=== PATIENT | female | born 1975 | race Caucasian/White ===

== ENCOUNTER → 2018-09-25 | Day surgery (SDC) | payer OTHER ==
[2018-09-10 11:17] LABS: BASOPHILS # (AUTO) 0.1 (0.0-0.1); BASOPHILS % 0.6 % (0.0-1.0); EOSINOPHILS # (AUTO) 0.4 (0.0-0.4); HEMATOCRIT 34.3 % (34.2-44.1); HEMOGLOBIN 11.1 g/dL (12.0-16.0); LYMPHOCYTES # (AUTO) 2.3 (1.0-3.2); LYMPHOCYTES % 13.1 % (18.0-39.1); MEAN CORPUSCULAR HEMOGLOBIN 26.6 pg (28-32); MEAN CORPUSCULAR HGB CONC 32.4 g/dL (31-35); MEAN CORPUSCULAR VOLUME 82.3 fL (81-99); MONOCYTES % 5.4 % (4.4-11.3); NEUTROPHILS # (AUTO) 13.8 (2.1-6.9); NEUTROPHILS % 77.8 % (38.7-80.0); PLATELET COUNT 388 x10e3/uL (140-360); RED BLOOD COUNT 4.17 x10e6/uL (3.6-5.1); RED CELL DISTRIBUTION WIDTH 13.4 % (11.7-14.4)
--- NOTE | 2018-09-10 12:40 | Diagnostic Imaging Report ---
EXAMINATION: CHEST 2 VIEWS INDICATION: Pre-op COMPARISON: None FINDINGS: TUBES and LINES: None. LUNGS: Lungs are well inflated. Lungs are clear. There is no evidence of pneumonia or pulmonary edema. PLEURA: No pleural effusion or pneumothorax. HEART AND MEDIASTINUM: The cardiomediastinal silhouette is unremarkable. BONES AND SOFT TISSUES: No acute osseous lesion. Soft tissues are unremarkable. UPPER ABDOMEN: No free air under the diaphragm. IMPRESSION: No acute thoracic abnormality. Signed by: Jayna Mustafa MD on 09/10/2018 12:37 PM
[2018-09-24 11:26] LABS: BASOPHILS # (AUTO) 0.1 (0.0-0.1); BASOPHILS % 0.9 % (0.0-1.0); EOSINOPHILS # (AUTO) 0.4 (0.0-0.4); EOSINOPHILS % 3.6 % (0.0-6.0); HEMATOCRIT 39.2 % (34.2-44.1); LYMPHOCYTES # (AUTO) 2.4 (1.0-3.2); LYMPHOCYTES % 22.6 % (18.0-39.1); MEAN CORPUSCULAR HGB CONC 33.2 g/dL (31-35); MEAN CORPUSCULAR VOLUME 81.3 fL (81-99); MONOCYTES # (AUTO) 0.8 (0.2-0.8); MONOCYTES % 7.7 % (4.4-11.3); NEUTROPHILS # (AUTO) 6.9 (2.1-6.9); NEUTROPHILS % 64.6 % (38.7-80.0); PLATELET COUNT 379 x10e3/uL (140-360); RED BLOOD COUNT 4.82 x10e6/uL (3.6-5.1); RED CELL DISTRIBUTION WIDTH 13.8 % (11.7-14.4)
[~2018-09-25] MED LIST: ACETAMINOPHEN325 M1 PO; BUPIVACAINE HCL 0.5% INJ 30 ML VIAL INJ ONE; CLINDAMYCIN PHOS 900MG/ 50ML 50 ML IV ONE; DEXAMETHASONE SOD PHOS INJ 4 MG/ML VIAL ONE; FENTANYL CITRATE/PF 100MCG/2 ML INJ ONE; ISOFLURANE INHAL SOLN 250 ML BTL INH ONE; LIDOCAINE HCL 2% LOCAL INJ 5 ML SDV VIAL INJ ONE; MELOXICAM7.5 MG PO; MIDAZOLAM HCL 2 MG/2 ML VIAL ONE; OMEPRAZOLE40 MG PO; ONDANSETRON HCL INJ 2MG/ML 2ML 2 MG/ML VIAL ONE; PROAIR HFA INH8.5 GM INH; PROPOFOL IV EMULSION 10 MG/ML 20 ML VIAL ONE
--- OUTSIDE RECORDS SUMMARY | 2018-09-25 05:15 | XMS REPORT ---
Author Author [facility] Address Unknown Phone Unavailable Care Team Providers Care Bilingual Secretary Name Role Phone Sourav BLEDSOE Unavailable Unavailable Payers Payer Name Policy Type Policy Number Effective Date Expiration Date Problems This patient has no known problems. Allergies, Adverse Reactions, Alerts Allergy Name Allergy Type Status Severity Reaction(s) Onset Date Inactive Date Treating Clinician Comments amoxicillin DA Active SV 2018-08-26 00:00:00 codeine DA Active TN 2009-01-04 00:00:00 Medications This patient has no known medications. Results Test Description Test Time Test Comments Text Results Atomic Results Result Comments CHEST 2 VIEWS 2018-09-10 12:36:00 [place] [address] Patient Name: TIGIST MCKEON MR #: [id number] : 1975 Age/Sex: 43/F Req #: [id number] Adm Physician: Ordered by: Sourav BLEDSOE DPM Report #: [id number] Location: OR Room/Bed: Procedure: [id number] DX/CHEST 2 VIEWS Exam Date: 09/10/18 Exam Time: 1119 REPORT STATUS: Signed EXAMINATION: CHEST 2 VIEWS INDICATION: Pre-op COMPARISON: None FINDINGS: TUBES and LINES: None. LUNGS: Lungs are well inflated. Lungs are clear. There is no evidence of pneumonia or pulmonary edema. PLEURA: No pleural effusion or pneumothorax. HEART AND MEDIASTINUM: The cardiomediastinal silhouette is unremarkable. BONES AND SOFT TISSUES: No acute osseous lesion. Soft tissues are unremarkable. UPPER ABDOMEN: No free air under the diaphragm. IMPRESSION: No acute thoracic abnormality. Signed by: Yola Yates MD on 09/10/2018 12:37 PM Dictated By: YOLA YATES MD 123 Transcribed By: WILLA on 09/10/18 1237 COPY TO: Sourav BLEDSOE [facility] SURGICAL SPECIMENS 2018-09-03 09:11:00 RUN DATE: 09/03/18 [facility] *LIVE* PAGE 1 RUN TIME: 911 Specimen Inquiry RUN USER: INTERFACE PATIENT: MOHAN MCKEONLY ALE LOC: [facility]I U #: [id number] AGE/SX: 43/F ROOM: [facility] RE08/29/18REG DR: Tessa Saucedo MD : [birth year] BED: 8 DIS: 08/29/18 STATUS: DIS Ondina TLOC: SPEC #: [id number] RECD: 08/30/18 STATUS: SADA COHEN #: [id number] HOLLY: 08/30/[address]: Files,Tessa Newberry MD ENTERED: 09/03/18 SP TYPE: SURG SPEC OTHR DR: No Primary or Family PhysicianORDERED: GM LEVEL 4 CODES: [id number] - SOFT TISSUES, N [id number] - UTERUS, NOS COPIES TO: No Primary or Family Physician Tessa Saucedo MD [address] [place] [address] [address] [place], [place] [id number] PROCEDURES: GM LEVEL 4 (Incomplete) TISSUES: 1. SOFT TISSUES, NOS - Soft tissue, peritoneal, bx. 2. UTERUS, NOS - Uterus, cervix, bilateral tubes, excisio 3. SOFT TISSUES, NOS - Soft tissue, right ovary, bx. FINAL DIAGNOSIS Soft tissue, peritoneal, bx.: Fibrosis, mixed inflammation and dystrophic calcifications. Uterus, cervix, bilateral tubes, excision: Chronic cervicitis, squamous metaplasia, nabothian cysts. secretory endometrium, adenomyosis, fibrous serosal adhesions. bilateral fallopian tubes with no atypical cellular features. Soft tissue, right ovary, bx.: Hemorrhagic corpus luteum cyst. GROSS AND MICROSCOPIC GROSS EXAMINATION: Received in formalin labeled peritoneal biopsy 1.1 cm pink-henriquez nodule (A). Received in formalin labeled uterus, cervix, bilateral fallopian tubes is a 160 g 10 x 6.7 x 4 cm uterus with a 3.2 cm in diameter cervix with purple henriquez smooth ectocervix and 0.8 cm cervical os. The serosal surface is purple henriquez and smooth. The left fallopian tube measures 3.5 cm in length 0.8 cm in diameter, the right fallopian tube measures 4.4 cm in length 0.8 cm in diameter. The endometrium is henriquez and lush measuring up to 0.5 cm. The myometrium measures up to 2.1 cm is pink-henriquez and trabeculated. Submitted CONTINUED ON NEXT PAGE RUN DATE: 09/03/18 [facility] *LIVE* PAGE 2 RUN TIME: 911 Specimen Inquiry RUN USER: INTERFACE SPEC #: [id number] PATIENT: TIGIST MCKEON #[id number] (Continued) GROSS AND MICROSCOPIC (Continued) (B)-(C) cervix (D)-(G) corpus uteri (H) left fallopian tube (I) right fallopian tube. Received in formalin labeled right ovarian cyst is a 2.1 x 1.1 x 0.6 cm portion of white-henriquez tissue with attached hemorrhage (J). MICROSCOPIC EXAMINATION: Sections of the peritoneal biopsy reveal portions fibroadipose with some fibrosis, mixed inflammation and calcification. The ectocervical mucosa has normal maturation. The endocervical mucosa has nabothian cysts, areas of squamous metaplasia and associated chronic inflammation. The endometrial glands are dilated with eosinophilic secretions. Benign endometrial glands and stroma are present in the myometrium. The serosa shows fibrous adhesions. Both fallopian tubes are unremarkable. Sections of the right ovary reveal a hemorrhagic corpus luteum cyst. POST-OP DIAGNOSIS Heavy menstrual bleeding, dysmenorrhea, dyspareunia PRE-OP DIAGNOSIS Heavy menstrual bleeding, dysmenorrhea, dyspareunia Signed SIGNATURE ON FILE Brando Schmidt Sanchez DO 09/03/1811 END OF REPORT BASIC METABOLIC PANEL 2018-08-29 07:23:00 SODIUM (test code=NA) 140 mEq/L 134-147 POTASSIUM (test code=K) 3.5 mEq/L 3.4-5.0 CHLORIDE (test code=CL) 108 mEq/L 100-108 CARBON DIOXIDE (test code=CO2) 28 mEq/L 21-33 ANION GAP (test code=GAP) 8 0-20 GLUCOSE (test code=GLU) 122 mg/dL 70-110 BLOOD UREA NITROGEN (test code=BUN) 12 mg/dL 7-18 GLOMERULAR FILTRATION RATE (test code=GFR) 68.7 95-105 Units of measure=ml/min/1.73 m2 CREATININE (test code=CREAT) 0.9 mg/dL 0.6-1.3 CALCIUM (test code=CA) 8.5 mg/dL 8.0-10.5 - XR CHEST 1 [id number] 07:22:00 FAX: Tessa Núñez MD [phone] [place]: St: REG FAX: Brien Turner JR, MD [phone] Name: TIGIST MCKEON [facility] Mariusz Quan : 1975 Age/S: 43/F [address] [place] [address] Unit #: [id number] Loc: [place] [address] Phys: Brien Rodriguez JR, MD Acct: [id number] Dis Date: Status: REG [facility] PHONE #: [phone] Exam Date: 08/29/2018714 FAX #: [phone] Reason: PREOP PROTOCOL EXAMS: CPT CODE: [id number] XR CHEST 1 V [id number] EXAM: CHEST SINGLE VIEW HISTORY: 43-year-old female with menorrhagia, preoperative evaluation COMPARISON: Chest radiograph 07/10/2008 FINDINGS: The lungs are clear. The cardiomediastinal silhouette is normal for projection. No acute osseous abnormality. IMPRESSION: 1. No acute cardiopulmonary abnormality. SL: [id number] at 0722 Reported and signed by: Stormy Dudley M.D. CC: Tessa Saucedo MD; Brien Rodriguez JR, MD Technologist: RT Aracelis(R) Trnscrd Date/Time/By: 08/29/2018 (07) : By: [email or web address] Orig Print D/T: S: 08/29/2018 (0713) PAGE 1 Signed Report PROTHROMBIN [id number] 11:47:00 * Test Item Value Reference Range Comments PROTHROMBIN TIME PATIENT (test code=PTP) 10.9 SECONDS 9.3-12.9 INTERNATIONAL NORMAL RATIO (test code=INR) 1.0 0.8-1.2 TARGET INR BY INDICATION Indication INR1. Prophylaxis of venous thrombosis 2.0 - 3.0 (orthopedic surgery), Prophylaxis of venous thrombosis (other than high-risk surgery), Treatment of Deep Vein Thrombosis/Pulmonary Embolism, Prevention of systemic embolism - Tissue heart valves, Acute Myocardial Infarction (to prevent systemic embolism), Valvular heart disease, Atrial Fibrillation, Bileaflet mechanical valve in aortic position.2. Mechanical prosthetic valves (high risk), 2.5 - 3.5 Presence of Lupus Anticoagulant or Antiphospholipid Antibodies, Prevention of systemic embolism - Acute Myocardial Infarction (to prevent recurrent infarct). THROMBOPLASTIN TIME [id number] 11:47:00* Test Item Value Reference Range Comments THROMBOPLASTIN TIME PARTIAL (test code=PTT) 33.4 Seconds 25.0-39.5 Therapeutic Range: 50.4 - 88.3 Seconds Effective 06/25/2018 COMPREHENSIVE METABOLIC [id number] 11:47:00* Test Item Value Reference Range Comments SODIUM (test code=NA) 138 mEq/L 134-147 POTASSIUM (test code=K) 4.6 mEq/L 3.4-5.0 CHLORIDE (test code=CL) 105 mEq/L 100-108 CARBON DIOXIDE (test code=CO2) 29 mEq/L 21-33 ANION GAP (test code=GAP) 9 0-20 GLUCOSE (test code=GLU) 96 mg/dL 70-110 BLOOD UREA NITROGEN (test code=BUN) 17 mg/dL 7-18 GLOMERULAR FILTRATION RATE (test code=GFR) 68.7 95-105 Units of measure=ml/min/1.73 m2 CREATININE (test code=CREAT) 0.9 mg/dL 0.6-1.3 TOTAL PROTEIN (test code=PROT) 7.6 g/dL 6.4-8.2 ALBUMIN (test code=ALB) 4.20 g/dL 3.4-5.0 CALCIUM (test code=CA) 9.0 mg/dL 8.0-10.5 BILIRUBIN TOTAL (test code=BILT) 0.40 mg/dL 0.0-1.0 SGOT/AST (test code=AST) 18 IUnit/L 15-37 SGPT/ALT (test code=ALT) 31 IUnit/L 15-65 ALKALINE PHOSPHATASE TOTAL (test code=ALKP) 75 IUnit/L 20-125 HCG SERUM [id number] 11:47:00* Test Item Value Reference Range Comments HCG SERUM QUAL (test code=HCGQL) SERUM NEGATIVE NEGATIVE COMPREHENSIVE METABOLIC [id number] 11:37:00* Test Item Value Reference Range Comments SODIUM (test code=NA) mEq/L 134-147 POTASSIUM (test code=K) mEq/L 3.4-5.0 CHLORIDE (test code=CL) mEq/L 100-108 CARBON DIOXIDE (test code=CO2) mEq/L 21-33 ANION GAP (test code=GAP) 0-20 GLUCOSE (test code=GLU) mg/dL 70-110 BLOOD UREA NITROGEN (test code=BUN) mg/dL 7-18 GLOMERULAR FILTRATION RATE (test code=GFR) 95-105 CREATININE (test code=CREAT) mg/dL 0.6-1.3 TOTAL PROTEIN (test code=PROT) g/dL 6.4-8.2 ALBUMIN (test code=ALB) g/dL 3.4-5.0 CALCIUM (test code=CA) mg/dL 8.0-10.5 BILIRUBIN TOTAL (test code=BILT) mg/dL 0.0-1.0 SGOT/AST (test code=AST) IUnit/L 15-37 SGPT/ALT (test code=ALT) IUnit/L 15-65 ALKALINE PHOSPHATASE TOTAL (test code=ALKP) IUnit/L 20-125 HCG SERUM [id number] 11:37:00* Test Item Value Reference Range Comments HCG SERUM QUAL (test code=HCGQL) SERUM NEGATIVE NEGATIVE CBC W/AUTO [id number] 11:26:00* Test Item Value Reference Range Comments WHITE BLOOD CELL (test code=WBC) 9.13 x10 3/uL 4.5-11.0 RED BLOOD CELL (test code=RBC) 4.76 x10 6/uL 3.54-5.02 HEMOGLOBIN (test code=HGB) 12.8 g/dL 11.0-15.0 HEMATOCRIT (test code=HCT) 40.1 % 33.0-45.0 MEAN CELL VOLUME (test code=MCV) 84.2 fL 81.0-99.0 MEAN CELL HGB (test code=MCH) 26.9 pg 27.0-33.0 MEAN CELL HGB CONCETRATION (test code=MCHC) 31.9 g/dL 33.0-37.0 RED CELL DISTRIBUTION WIDTH CV (test code=RDW) 13.2 % 11.5-14.5 RED CELL DISTRIBUTION WIDTH SD (test code=RDW-SD) 40.5 fL 37.0-54.0 PLATELET COUNT (test code=PLT) 343 x10 3/uL 150-400 MEAN PLATELET VOLUME (test code=MPV) 10.6 fL 7.0-9.0 NEUTROPHIL % (test code=NT%) 64.5 % 56.0-77.0 IMMATURE GRANULOCYTE % (test code=IG%) 0.8 % 0.0-2.0 LYMPHOCYTE % (test code=LY%) 24.2 % 14.0-32.0 MONOCYTE % (test code=MO%) 7.0 % 4.8-9.0 EOSINOPHIL % (test code=EO%) 2.6 % 0.3-3.7 BASOPHIL % (test code=BA%) 0.9 % 0.0-2.0 NUCLEATED RBC % (test code=NRBC%) 0.0 % 0-0 NEUTROPHIL # (test code=NT#) 5.89 x10 3/uL 2.0-7.6 IMMATURE GRANULOCYTE # (test code=IG#) 0.07 x10 3/uL 0.00-0.03 LYMPHOCYTE # (test code=LY#) 2.21 x10 3/uL 1.0-3.8 MONOCYTE # (test code=MO#) 0.64 x10 3/uL 0.1-0.8 EOSINOPHIL # (test code=EO#) 0.24 x10 3/uL 0.0-0.2 BASOPHIL # (test code=BA#) 0.08 x10 3/uL 0.0-0.2 NUCLEATED RBC # (test code=NRBC#) 0.00 x10 3/uL 0.0-0.1 MANUAL DIFF REQUIRED (test code=MDIFF) NO DIAG MAMM RIGHT CAD [id number] 11:29:00 - DIAG MAMM RIGHT CAD DIGITALUNILATERAL RIGHT DIGITAL DIAGNOSTIC MAMMOGRAM WITH CAD: 05/23/2018CLINICAL: Diffuse pain, right breast. Current mammographic images were evaluated by either a ZYB M-Vu or a Estrela Digital ImageChecker CAD (computer aided detection system). Comparison is made to exam dated 10/22/2017 mammogram - [facility]. The tissue of the right breast is extremely dense, which lowers the sensitivity of mammography. There are benign-appearing masses with o bscured borders in the right breast, including one subjacent to a marker placed on the skin where the patient presents with the complaint of a palpable abnormal ity. No suspicious architectural distortion, malignant type calcification, or l ymph node abnormality detected. INCOMPLETE ASSESSMENT: ADDITIONAL IMAGING EVALU ATION RECOMMENDEDNo significant new finding noted upon comparison with the exam of 10/22/2017. Ultrasound to follow.- BREAST ULTRASOUND RIGHTULTRASOUND OF RIGHT BREAST AND RIGHT AXILLA: 05/23/2018Comparison is made to exam dated 10/22/2017 ma mmogram - [facility]. Real-time ultrasound of the right breast and axill a was performed. No abnormalities were seen sonographically in the right axilla . There are multiple variably sized simple cysts in the right breast, with the largest correlating with the patient's palpable mass at 12 o'clock, 6 cm from th e nipple.No new solid mass or focus of parenchymal distortion was imaged.A compl ex mass, 1.0 x 0.7 x 0.9 cm, wider than deeper in contour, is present in the 3 o 'clock, right breast, 2 cm from the nipple. It is unassociated with abnormal pos terior acoustic shadowing or increased flow on color Doppler. IMPRESSION: BENIG N Benign findings.No significant new finding is noted upon comparison with outsi de sonograms of 10/25/2017 and 02/01/2016. The complex mass appears stable, possi patel a complicated cyst or fibroadenoma undergoing cystic degeneration. There is no sonographic evidence of malignancy. Resume annual mammogram and an ultrasou nd screening schedule is recommended. Ke Burden M.D. rb/:05/24/19 11:29:00 Entry: - 05/28/2018 08:06:00Imaging Technologist: Jenniffer SILVA, [facility]-FWletter sent: BIRADS 1-2 Combo FU Letter Mammogr am BI-RADS: 0 Indeterminate Ultrasound BI-RADS: 2 BenignBREAST ULTRASOUND RIGHT 2018-05-23 11:29:00 - DIAG MAMM RIGHT CAD DIGITALUNILATERAL RIGHT DIGITAL DIAGNOSTIC MAMMOGRAM WITH CAD: 05/23/2018CLINICAL: Diffuse pain, right breast. Current mammographic images were evaluated by either a ZYB M-Vu or a Mediumer CAD (computer aided detection system). Comparison is made to exam dated 10/22/2017 mammogram - [facility]. The tissue of the right breast is extremely dense, which lowers the sensitivity of mammography. There are benign-appearing masses with obscured borders in the right breast, including one subjacent to a marker placed on the skin where the patient presents with the complaint of a palpable abnormality. No suspicious architectural distortion, malignant type calcification, or lymph node abnormality detected. INCOMPLETE ASSESSMENT: ADDITIONAL IMAGING EVALUATION RECOMMENDEDNo significant new finding noted upon comparison with the exam of 10/22/2017. Ultrasound to follow.- BREAST ULTRASOUND RIGHTULTRASOUND OF RIGHT BREAST AND RIGHT AXILLA: 05/23/2018Comparison is made to exam dated 10/22/2017 mammogram - [facility]. Real-time ultrasound of the right breast and axilla was performed. No abnormalities were seen sonographically in the right axilla. There are multiple variably sized simple cysts in the right breast, with the largest correlating with the patient's palpable mass at 12 o'clock, 6 cm from the nipple.No new solid mass or focus of parenchymal distortion was imaged.A complex mass, 1.0 x 0.7 x 0.9 cm, wider than deeper in contour, is present in the 3 o'clock, right breast, 2 cm from the nipple. It is unassociated with abnormal posterior acoustic shadowing or increased flow on color Doppler. IMPRESSION: BENIGN Benign findings.No significant new finding is noted upon comparison with outside sonograms of 10/25/2017 and 02/01/2016. The complex mass appears stable, possibly a complicated cyst or fibroadenoma undergoing cystic degeneration. There is no sonographic evidence of malignancy. Resume annual mammogram and an ultrasound screening schedule is recommended. Ke Burden M.D. rb/:05/23/2018 11:29:00 Entry: - 05/28/2018 08:06:00Imaging Technologist: Jenniffer SILVA, [facility]-FWletter sent: BIRADS 1-2 Combo FU Letter Mammogr am BI-RADS: 0 Indeterminate Ultrasound BI-RADS: 2 Benign
--- NOTE | 2018-09-25 08:10 | Operative Report ---
DATE OF PROCEDURE: 09/25/2018 SURGEON: Sourav Sharif DPM REGULATORY AFFAIRS COORDINATOR SURGEON: Trinity Dobbs DPM PREOPERATIVE DIAGNOSIS: Left lateral ankle ligament rupture. POSTOPERATIVE DIAGNOSIS: Left lateral ankle ligament rupture. PLANNED PROCEDURE: Left Brostrom lateral ankle reconstruction. REGULATORY AFFAIRS COORDINATOR: Trinity Dobbs DPM ANESTHESIA: General with a postoperative block consisting of 15 mL of 0.5% Marcaine plain. HEMOSTASIS: Pneumatic thigh tourniquet set at 350 mmHg for a total time of approximately 20 minutes. MATERIALS: One GII Mitek bone anchor, 0 Ethibond, 3-0 Vicryl, and 4-0 Prolene. ESTIMATED BLOOD LOSS: Less than 10 mL. PATHOLOGY: None. PROCEDURE NOTE: The patient was seen in the preoperative waiting room where the correct procedure and site was identified. The patient was brought into the operating room, placed on the operating table in the supine position. General anesthesia was initiated. At this time, a well-padded pneumatic tourniquet was placed about the patient's left thigh. The left foot, ankle, and leg were scrubbed, prepped, and draped in the usual aseptic manner. The left foot, ankle, and leg were examined with an Esmarch bandage. A pneumatic thigh tourniquet was inflated to 350 mmHg for a total time of approximately 20 minutes. Attention was directed to the anterolateral aspect of the patient's left ankle where a reverse-J type incision was made at the anterior aspect of the fibula extending inferiorly and wrapping around the inferior aspect of the fibula. The incision was carried through subcutaneous tissue them from deeper underlying structures. All vital neurovascular structures were identified and retracted medially and laterally. All bleeders were cauterized or ligated as deemed necessary. At this time, utilizing the same incision, the anterior talofibular ligament as well as the retinaculum and anterior ankle capsule was incised to allow for good visualization of the ligament, which was noted to be attenuated. The periosteum of the fibula was reflected to allow for good visualization of the bone. Next, per manufacture protocol, one Mitek bone anchor was placed into the inferior aspect of the fibula. The Fiberwire suture that was after Mitek anchor was passed through the anterior talofibular ligament as well as the retinaculum. This was tacked into the inferior aspect of the fibula. Next, utilizing a 0 Ethibond, the Thakur modification of the procedure was performed with the retinaculum and the anterior ankle joint capsule. This was reapproximated in a [id number]-[id number] fashion. The wound was then copiously irrigated with sterile saline. The subcutaneous tissue was reapproximated with simple interrupted sutures with 3-0 Vicryl and the skin was reapproximated with simple interrupted sutures with 4-0 Prolene. The incision site was then dressed with Adaptic, 4x4s, Kerlix, 4-inch Webril, 4 x 30 posterior splint, 4-inch Rajan wrap and a 6-inch Rajan wrap. The patient tolerated the procedure and anesthesia well. The patient was transferred to the postop recovery room with vital signs stable and vascular status intact. The patient was monitored there for a short period time before being sent home with the following written and oral instructions. 1. Keep the dressing clean, dry, and intact. 2. The patient is to remain nonweightbearing in a posterior splint to avoid any ambulation until being seen in the office. 3. The patient was given office number should contact us if any problems should arise. Dictated by Trinity Dobbs DPM S CARRI Mendoza (Charley)/MODL /[id number] GABRIEL
[2018-09-25 08:30] VITALS: BP 122/84
== END | disposition home or self-care (01) ==
LOC: OR 05:13
PROVIDERS: ATTEND Podiatrist Foot & Ankle Surgery
DX: S93.492A Sprain of other ligament of left ankle, initial encounter (principal); S93.411A Sprain of calcaneofibular ligament of right ankle, initial encounter; M16.10 Unilateral primary osteoarthritis, unspecified hip; J45.909 Unspecified asthma, uncomplicated; K21.9 Gastro-esophageal reflux disease without esophagitis; X58.XXXA Exposure to other specified factors, initial encounter; Z88.6 Allergy status to analgesic agent; Z88.0 Allergy status to penicillin; Z01.810 Encounter for preprocedural cardiovascular examination; Z01.812 Encounter for preprocedural laboratory examination; Z01.818 Encounter for other preprocedural examination
CPT/HCPCS: 27695; 36415 ×2; 71046; 85025 ×2; 93005; C1713; J1100; J2001; J2250; J2405; J2704; J3010

== ENCOUNTER 2019-11-06 10:26 | Emergency (ER) | payer OTHER ==
[~2019-11-06] VITALS: Ht 167.6 cm; Wt 76.2 kg
[~2019-11-06 10:26] MED LIST changes: -BUPIVACAINE HCL 0.5% INJ 30 ML VIAL INJ ONE; -CLINDAMYCIN PHOS 900MG/ 50ML 50 ML IV ONE; -DEXAMETHASONE SOD PHOS INJ 4 MG/ML VIAL ONE; -FENTANYL CITRATE/PF 100MCG/2 ML INJ ONE; -ISOFLURANE INHAL SOLN 250 ML BTL INH ONE; -LIDOCAINE HCL 2% LOCAL INJ 5 ML SDV VIAL INJ ONE; -MIDAZOLAM HCL 2 MG/2 ML VIAL ONE; -ONDANSETRON HCL INJ 2MG/ML 2ML 2 MG/ML VIAL ONE; -PROPOFOL IV EMULSION 10 MG/ML 20 ML VIAL ONE
[2019-11-06] MEDS ORDERED: KETOROLAC TROMETHAMINE 30 MG/ML VIAL IV STA (11:06)
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
[2019-11-06] MEDS ORDERED: ACETAMIN/BUTALBITAL/CAFFEINE TAB PO ONE (11:15)
[2019-11-06] MEDS ORDERED: DIPHENHYDRAMINE HCL INJ 50 MG/ML VIAL IV ONE (11:15)
[2019-11-06] MEDS ORDERED: SODIUM CHLORIDE 0.9% 1000ML 1,000 ML IV SCH (11:15)
[2019-11-06] MEDS ORDERED: METOCLOPRAMIDE HCL 10 MG/2ML VIAL IV ONE (11:15)
[2019-11-06] MEDS ORDERED: MAGNESIUM SULF 1GRAM/DEXTROSE 100 ML IV ONE (11:30)
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
[2019-11-06] MEDS ORDERED: AUGMENTIN 875-1 EACH PO (13:39)
[2019-11-06] MEDS ORDERED: REGLAN10 MG PO (13:39)
[2019-11-06] MEDS ORDERED: FIORINAL 50-321 EACH PO (13:39)
[2019-11-06] MEDS ORDERED: BENADRYL25 M1 PO (13:39)
[2019-11-06 14:16] VITALS: BP 137/65
== END 2019-11-06 14:19 | disposition home or self-care (01) ==
LOC: ER 10:48
DX: S06.0X0A Concussion without loss of consciousness, initial encounter (principal); T70.0XXA Otitic barotrauma, initial encounter; R51 Headache; R11.0 Nausea; M54.2 Cervicalgia; V89.2XXD Person injured in unspecified motor-vehicle accident, traffic, subsequent encounter
CPT/HCPCS: 70450; 99284; J1200; J1885; J2765; J3475; J7030